=== PATIENT | female | born 1985 | race Caucasian/White ===

== ENCOUNTER 2017-04-12 19:13 | Emergency (ER) | payer MEDICAID ==
[~2017-04-12] VITALS: Ht 154.9 cm; Wt 75.7 kg
[~2017-04-12 19:13] MED LIST: IBUP-1801 PO; PREN-380 PO
[2017-04-12 19:26] VITALS: BP 154/107
--- NOTE | 2017-04-12 20:20 | NUR ---
TO ER BED 4
--- NOTE | 2017-04-12 20:26 | NUR ---
31/F CAME IN W C/O 10/30 RT ANKLE PAIN S/P MECHANICAL FALL FROM HOME. PT STATES SHE FELL FROM STAIRS, 3 STEPS. RT ANKLE NOTED WITH MODERATE EDEMA, WITH MILD REDNESS NOTED, +PMSC. REPORTS TAKING TYLENOL WITH MODERATE RELIEF OF SYMPTOMS. DENIES OTHER PMH/RX
[2017-04-12] MEDS ORDERED: IBUPROFEN 800 MG TAB PO ONE (20:50)
[2017-04-12 21:13] VITALS: BP 128/87
== END 2017-04-12 21:04 | disposition home or self-care (01) ==
LOC: MED 19:13
DX: S93.601A Unspecified sprain of right foot, initial encounter (principal); R03.0 Elevated blood-pressure reading, without diagnosis of hypertension; Z79.899 Other long term (current) drug therapy; W19.XXXA Unspecified fall, initial encounter; Y93.89 Activity, other specified; Y92.89 Other specified places as the place of occurrence of the external cause; Y99.8 Other external cause status
CPT/HCPCS: 73610; 73630; 99284

== ENCOUNTER 2021-01-03 09:28 | Emergency (ER) | payer MEDICAID ==
[~2021-01-03] VITALS: Ht 165.1 cm; Wt 77.1 kg
[2021-01-03 09:36] VITALS: BP 151/96
--- NOTE | 2021-01-03 09:39 | NUR ---
PT W/C ASSISTED TO BED 11.
--- NOTE | 2021-01-03 09:42 | NUR ---
35 Y/O FEMALE C/O L ANKLE PAIN S/P FALL X 40 MINS AGO. PT REPORTS THAT SHE TWISTED HER ANKLE WHILE WALKING AND FELL. DENIES HITTING HEAD. L MEDIAL ASPECT OF ANKLE IS SWOLLEN AND TENDER TO TOUCH. PT W/C ASSISTED, UNABLE TO BEAR WEIGHT. PT HAS FULL SENSATION AND ABLE TO WIGGLE TOES. CAP REFILL <3 SECONDS. PT DENIES TAKING ANYTHING FOR PAIN. PT A/O X4 WITH EVEN AND UNLABORED RESPIRATIONS. PMH:DENIES NKDA
--- NOTE | 2021-01-03 09:52 | NUR ---
PATIENT BACK FROM XRAY VIA WHEELCHAIR
--- NOTE | 2021-01-03 10:50 | NUR ---
PT CRYING AND REQUESTING PAIN MEDICATION. REPORTS PAIN 12/30. DR RODGERS MADE AWARE
[2021-01-03] MEDS ORDERED: MORPHINE SULFATE 4 MG/ML SYR IM ONE (10:55)
[2021-01-03] MEDS ORDERED: ONDANSETRON 4 MG ODT PO ONE (10:55)
[2021-01-03] MEDS ORDERED: IBUPROFEN 600 MG TAB PO ONE (10:55)
[2021-01-03] MEDS ORDERED: ACET-8386 PO (11:05)
[2021-01-03] MEDS ORDERED: IBUP-2213 PO (11:05)
--- NOTE | 2021-01-03 12:12 | NUR ---
Patient discharged with v/s stable. Written and verbal after care instructions ABOUT ANKLE FRACTURE given and explained. Patient alert, oriented and verbalized understanding of instructions. Ambulatory with steady gait. All questions addressed prior to discharge. ID band removed. Patient advised to follow up with PMD. Rx of NORCO 5-325MG AND IBUPROFEN given. Patient educated on indication of medication including possible reaction and side effects. Opportunity to ask questions provided and answered.
== END 2021-01-03 12:12 | disposition home or self-care (01) ==
LOC: MED 09:28
DX: S82.62XA Displaced fracture of lateral malleolus of left fibula, initial encounter for closed fracture (principal); Z79.899 Other long term (current) drug therapy; X50.1XXA Overexertion from prolonged static or awkward postures, initial encounter; Y93.01 Activity, walking, marching and hiking; Y92.480 Sidewalk as the place of occurrence of the external cause; Y99.8 Other external cause status
CPT/HCPCS: 29515; 73610; 96372; 99283; J2270; Q0162